=== PATIENT | male | born 1975 | race Two or more races ===

== ENCOUNTER 2017-01-02 12:29 | Emergency (ER) | payer SELFPAY ==
[~2017-01-02] VITALS: Ht 182.9 cm; Wt 98.0 kg
[~2017-01-02 12:29] MED LIST: NONE REPORTED
[2017-01-02 14:48] LABS: CLARITY URINE CLEAR (CLEAR); COLOR URINE YELLOW (YELLOW); GLUCOSE URINE NEGATIVE (NEGATIVE); KETONES URINE NEGATIVE (NEGATIVE); LEUKOCYTE ESTERASE URINE 2+ (NEGATIVE); NITRITE URINE NEGATIVE (NEGATIVE); OCCULT BLOOD URINE NEGATIVE (NEGATIVE); PH URINE 5.5 (4.5-8.0); PROTEIN URINE NEGATIVE (NEGATIVE); SPECIFIC GRAVITY URINE 1.026 (1.005-1.030); UROBILINOGEN URINE 0.2 E.U./dL (0.2-1.0)
[2017-01-02 15:45] LABS: BACTERIA URINE 1+; RBC URINE 0-2 /hpf (0-2); SQUAMOUS EPITHELIAL CELL URINE 1+ /lpf (RARE/1+)
[2017-01-02] MEDS ORDERED: AZITHROMYCIN 500 MG TABLET PO ONE (16:00)
[2017-01-02] MEDS ORDERED: LIDOCAINE HCL 1% 20ML VIAL (Pyxis) INJ INFIL ONE (16:00)
[2017-01-02] MEDS ORDERED: CEFTRIAXONE SODIUM 250 MG/VIAL IM ONE (16:00)
[2017-01-02 16:32] VITALS: BP 144/91
== END 2017-01-02 16:40 | disposition home or self-care (01) ==
LOC: ER 14:17
DX: N45.1 Epididymitis (principal); N43.3 Hydrocele, unspecified; N39.0 Urinary tract infection, site not specified; F17.200 Nicotine dependence, unspecified, uncomplicated; Z98.890 Other specified postprocedural states
CPT/HCPCS: 76870; 81001; 93976; 96372; 99285; J0696; J3490; Z7610

== ENCOUNTER 2017-02-09 22:26 | Emergency (ER) | payer SELFPAY ==
[~2017-02-09] VITALS: Ht 182.9 cm; Wt 105.0 kg
[2017-02-10 01:36] VITALS: BP 149/94
== END 2017-02-10 04:00 | disposition home or self-care (01) ==
LOC: ER 22:34
DX: K64.8 Other hemorrhoids (principal); F17.210 Nicotine dependence, cigarettes, uncomplicated
CPT/HCPCS: 99282

== ENCOUNTER 2017-03-27 09:50 | Emergency (ER) | payer SELFPAY ==
[~2017-03-27] VITALS: Ht 180.3 cm; Wt 102.0 kg
[2017-03-27 10:10] VITALS: BP 140/90
== END 2017-03-27 15:23 | disposition home or self-care (01) ==
LOC: ER 10:06
DX: B02.9 Zoster without complications (principal); E66.9 Obesity, unspecified; R03.0 Elevated blood-pressure reading, without diagnosis of hypertension; F17.200 Nicotine dependence, unspecified, uncomplicated
CPT/HCPCS: 99283

== ENCOUNTER 2018-08-31 20:01 | Emergency (ER) | payer SELFPAY ==
[~2018-08-31] VITALS: Ht 182.9 cm; Wt 110.0 kg
[2018-08-31] MEDS ORDERED: DIPHENHYDRAMINE 25MG CAPSULE PO ONE (21:45)
[2018-08-31] MEDS ORDERED: SULFAMETHOXAZOLE/TRIMETHOPRIM 800/160MG TABLET PO ONE (21:45)
[2018-08-31] MEDS ORDERED: CEFTRIAXONE SODIUM 1 G/VIAL IM ONE (21:45)
[2018-08-31] MEDS ORDERED: LIDOCAINE HCL 1% 20ML VIAL (Pyxis) INJ INFIL ONE (21:45)
[2018-08-31 22:42] VITALS: BP 130/81
== END 2018-08-31 22:46 | disposition home or self-care (01) ==
LOC: ER 20:01
DX: S40.862A Insect bite (nonvenomous) of left upper arm, initial encounter (principal); S50.862A Insect bite (nonvenomous) of left forearm, initial encounter; W57.XXXA Bitten or stung by nonvenomous insect and other nonvenomous arthropods, initial encounter; Y93.89 Activity, other specified; Y92.89 Other specified places as the place of occurrence of the external cause; I10 Essential (primary) hypertension; Z71.6 Tobacco abuse counseling; F17.210 Nicotine dependence, cigarettes, uncomplicated
CPT/HCPCS: 96372; 99283; 99406; J0696; J3490; Q0163

== ENCOUNTER 2022-01-15 13:06 | Emergency (ER) | payer SELFPAY ==
[~2022-01-15] VITALS: Ht 177.8 cm; Wt 100.4 kg
[2022-01-15 13:15] VITALS: BP 134/90
[2022-01-15 16:14] LABS: CLARITY URINE CLEAR (CLEAR); COLOR URINE YELLOW (YELLOW); KETONES URINE TRACE (NEGATIVE); LEUKOCYTE ESTERASE URINE 3+ (NEGATIVE); NITRITE URINE NEGATIVE (NEGATIVE); OCCULT BLOOD URINE NEGATIVE (NEGATIVE); PROTEIN URINE NEGATIVE (NEGATIVE); SPECIFIC GRAVITY URINE 1.024 (1.005-1.030)
[2022-01-15] MEDS ORDERED: DOXY100C5 MT (16:22)
[2022-01-15] MEDS ORDERED: DOXYCYCLINE HYCLATE 100MG CAPSULE PO ONE (16:30)
[2022-01-15] MEDS ORDERED: CEFTRIAXONE SODIUM 500 MG/VIAL IM ONE (16:30)
[2022-01-19 04:10] LABS: NEISSERIA GONORRHOEAE NAA Negative (Negative)
== END 2022-01-15 16:49 | disposition home or self-care (01) ==
LOC: ER 13:06
DX: N39.0 Urinary tract infection, site not specified (principal)
CPT/HCPCS: 81003; 87086; 87491; 87591; 96372; 99283; J0696

== ENCOUNTER 2022-06-23 05:38 | Emergency (ER) | payer SELFPAY ==
[~2022-06-23] VITALS: Ht 182.9 cm; Wt 107.5 kg
[~2022-06-23 05:38] MED LIST changes: +DOXY100C5 MT
[2022-06-23 06:00] VITALS: BP 144/93
[2022-06-23] MEDS ORDERED: LIDOCAINE HCL 1% 20ML VIAL (Pyxis) INJ INFIL ONE (08:45)
[2022-06-23] MEDS ORDERED: CEPH500C2 MT (09:42)
== END 2022-06-23 09:47 | disposition home or self-care (01) ==
LOC: ER 05:38
DX: L02.211 Cutaneous abscess of abdominal wall (principal)
CPT/HCPCS: 10060; 99283; J3490; Z7610

== ENCOUNTER 2024-07-13 00:21 | Emergency (ER) | payer MEDICAID ==
[~2024-07-13] VITALS: Ht 182.9 cm; Wt 109.2 kg
[~2024-07-13 00:21] MED LIST changes: +CEPH500C2 MT
[2024-07-13 00:49] VITALS: O2SAT 96
[2024-07-13] MEDS ORDERED: FLUORESCEIN SODIUM 1MG/STRIP EACHEYE ONE (01:00)
[2024-07-13] MEDS ORDERED: OCUFLX LEFTEYE (02:31)
[2024-07-13 04:10] VITALS: BP 134/77; PULSE 76; RESP 18; TEMP 37.05852; O2SAT 96
== END 2024-07-13 04:12 | disposition home or self-care (01) ==
LOC: ER 00:21
DX: S05.01XA Injury of conjunctiva and corneal abrasion without foreign body, right eye, initial encounter (principal); X58.XXXA Exposure to other specified factors, initial encounter; Y93.89 Activity, other specified; Y92.89 Other specified places as the place of occurrence of the external cause; Y99.8 Other external cause status
CPT/HCPCS: 99283